=== PATIENT | male | born 1950 | race Caucasian/White ===

== ENCOUNTER 2017-10-17 11:07 | Emergency (ER) | payer OTHER ==
[~2017-10-17] VITALS: Ht 185.4 cm; Wt 102.1 kg
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
[2017-10-17] MEDS ORDERED: B/P MED (12:28)
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
[2017-10-17] MEDS ORDERED: HYDR-757 PO (13:27)
[2017-10-17 13:43] LABS: BASOPHILS % (AUTO) 1 % (0-10); EOSINOPHILS % (AUTO) 1 % (0-10); HEMATOCRIT 44 % (40-54); HEMOGLOBIN 14.8 G/DL (13.3-17.7); LYMPHOCYTES % (AUTO) 23 % (12-44); MEAN CORPUSCULAR HEMOGLOBIN 29 PG (25-34); MEAN CORPUSCULAR HGB CONC 34 G/DL (32-36); MEAN CORPUSCULAR VOLUME 87 FL (80-99); MEAN PLATELET VOLUME 10.9 FL (7.4-10.4); MONOCYTES # (AUTO) 0.8 X 10^3 (0.0-1.0); MONOCYTES % (AUTO) 9 % (0-12); NEUTROPHILS # (AUTO) 5.9 X 10^3 (1.8-7.8); NEUTROPHILS % (AUTO) 67 % (42-75); PLATELET COUNT 193 10^3/uL (130-400); RED BLOOD COUNT 5.08 10^6/uL (4.35-5.85); RED CELL DISTRIBUTION WIDTH 14.1 % (10.0-14.5); WHITE BLOOD COUNT 8.8 10^3/uL (4.3-11.0)
[2017-10-17 13:58] LABS: BILIRUBIN,URINE NEGATIVE (NEGATIVE); CLARITY,URINE CLEAR; COLOR,URINE YELLOW; GLUCOSE, URINE (UA) NEGATIVE (NEGATIVE); KETONES,URINE NEGATIVE (NEGATIVE); LEUKOCYTE ESTERASE ,URINE 1+ (NEGATIVE); NITRITE,URINE NEGATIVE (NEGATIVE); PH,URINE 6 (5-9); PROTEIN,URINE NEGATIVE (NEGATIVE); UROBILINOGEN,URINE 1 MG/DL (NORMAL)
[2017-10-17 14:07] LABS: BACTERIA,URINE NEGATIVE /HPF; WBC,URINE 0-2 /HPF
[2017-10-17 15:00] VITALS: BP 153/88
== END 2017-10-17 15:00 | disposition home or self-care (01) ==
LOC: ER 11:11
DX: S22.21XA Fracture of manubrium, initial encounter for closed fracture (principal); K40.90 Unilateral inguinal hernia, without obstruction or gangrene, not specified as recurrent; R40.2142 Coma scale, eyes open, spontaneous, at arrival to emergency department; R40.2252 Coma scale, best verbal response, oriented, at arrival to emergency department; R40.2362 Coma scale, best motor response, obeys commands, at arrival to emergency department; V43.53XA Car driver injured in collision with pick-up truck in traffic accident, initial encounter; Y92.411 Interstate highway as the place of occurrence of the external cause
CPT/HCPCS: 36415; 71250; 73030; 73060; 73590; 74176; 81000; 84484; 85025; 94664

== ENCOUNTER 2023-04-23 05:47 | Outpatient (CLI) | payer OTHER ==
[~2023-04-23] VITALS: Ht 185.5 cm; Wt 104.5 kg
[~2023-04-23 05:47] MED LIST: B/P MED; HYDR-4226 PO
[2023-04-23] MEDS ORDERED: SIMV40TA25 PO (17:15)
[2023-04-23] MEDS ORDERED: SODI44SP NS (17:15)
[2023-04-23] MEDS ORDERED: FLUT16SP22 NS (17:15)
[2023-04-23] MEDS ORDERED: GABA300C PO (17:15)
[2023-04-23] MEDS ORDERED: ATEN25TA PO (17:15)
[2023-04-23] MEDS ORDERED: FAMO-356 PO (17:15)
== END 2023-04-23 17:20 | disposition home or self-care (01) ==
LOC: PREOP 05:47
PROVIDERS: ATTEND Specialist
DX: Z01.818 Encounter for other preprocedural examination (principal)

== ENCOUNTER 2023-04-25 09:51 | Day surgery (SDC) | payer OTHER ==
[~2023-04-25] VITALS: Ht 185.5 cm; Wt 104.5 kg
[~2023-04-25 09:51] MED LIST changes: +ATEN25TA PO; +FAMO-356 PO; +FLUT16SP22 NS; +GABA300C PO; +SIMV40TA25 PO; +SODI44SP NS
[2023-04-25] MEDS ORDERED: MIDAZOLAM INJ 2 MG/2 ML VIAL ONE (10:48)
[2023-04-25] MEDS: TETRACAINE 0.5% OPHTH SOLN 5 ML BTL OU PRN ×3 (11:29→11:49)
[2023-04-25] MEDS ORDERED: POVIDONE IODINE OPHTH SOLN 5% 30 ML OP ONE (11:30)
[2023-04-25] MEDS ORDERED: LIDOCAINE PF 1% 2 ML VIAL IR PRN (11:30)
[2023-04-25] MEDS ORDERED: MOXIFLOXACIN OPHTH SOLN 5 MG/ML 0.5 ML SYRINGE OP ONE (11:30)
[2023-04-25] MEDS ORDERED: TIMOLOL 0.5% (CATARACTS) 0.3 ML BTL OU PRN (11:30)
[2023-04-25] MEDS: TROPICAMIDE 1% OPH SOLN (MYDRIACYL) 15 ML BTL OP SCH ×3 (11:37→11:49)
[2023-04-25] MEDS: PHENYLEPHRINE 10% OPHTH SOLN 5 ML BTL OU SCH ×3 (11:37→11:49)
[2023-04-25 12:03] VITALS: BP 150/83
--- NOTE | 2023-04-25 12:15 | Ophthalmologist Pre-Op Note ---
Pre-Operative Progress Note H&P Reviewed The H&P was reviewed, patient examined and no changes noted. Date H&P Reviewed: Apr 25, 2023 Time H&P Reviewed: 12:15 Pre-Op Dx Cataract, Right Eye KENNETH MARTELL MD Apr 25, 2023 12:15
--- NOTE | 2023-04-25 12:35 | Ophthalmology Operative Report ---
Cataract removal/placement IOL PREOPERATIVE DIAGNOSIS: Cataract Right Eye POSTOPERATIVE DIAGNOSIS: Cataract Right Eye PROCEDURE: Cataract removal and placement of posterior chamber implant, right eye SURGEON: Efra Martell ANESTHESIA: Topical with sedation COMPLICATIONS: None ESTIMATED BLOOD LOSS: Minimal DESCRIPTION OF PROCEDURE: After proper informed consent was obtained, the patient, a 73 male, was taken to the Operating Room and the right eye was anesthetized with tetracaine. The right eye was then prepped and draped in the usual manner. A wire lid speculum was placed. A paracentesis was made at the left hand position. Preservative free lidocaine was injected into the anterior chamber followed by viscoelastic. A clear corneal incision was made in the temporal position. A capsulorrhexis was preformed and the central nuclear and cortical material were removed. The posterior capsule was polished and Pollo 22.5 [id number] IOL was placed into the capsular bag. The residual viscoelastic was aspirated and balanced saline solution was injected into the anterior chamber. Moxifloxacin was injected into the anterior chamber. The wound was checked and found to be water tight. The patient tolerated the procedure well without complications. EFRA MARTELL MD Apr 25, 2023 12:35
[2023-04-25 12:43] VITALS: BP 150/73
--- NOTE | 2023-04-25 12:59 | Anesthesia-General Post-Op ---
MAC Patient Condition Mental Status/LOC: Same as Preop Cardiovascular: Satisfactory Nausea/Vomiting: Absent Respiratory: Satisfactory Pain: Controlled Complications: Absent Post Op Complications Complications None Follow Up Care/Instructions Patient Instructions None needed. Anesthesiology Discharge Order Discharge Order Patient was doing well after the procedure with no complaints, stable vital signs, no apparent adverse anesthesia problems. No complications reported per nursing. RANJEET LINARES DO Apr 25, 2023 12:59
== END 2023-04-25 12:49 | disposition home or self-care (01) ==
LOC: SDC 09:51
PROVIDERS: ATTEND Specialist
DX: H25.9 Unspecified age-related cataract (principal); Z87.891 Personal history of nicotine dependence